=== PATIENT | female | born 1950 | race Caucasian/White ===

== ENCOUNTER 2017-08-23 10:28 | Outpatient (CLI) | payer BC, MEDICARE ==
--- NOTE | ~2017-08-23 | HEMODYNAMI ---
PATIENT:URIAH GUEVARA MEDICAL RECORD: [id number] : 52 LOCATION:D.CAT ADMISSION DATE: 08/23/17 Generatedon:08/23/201715:54 Patient name: URIAH GUEVARA Patient #: [id number] SSN: : 1950 Date of study: 08/23/2017 Page: Of Hemodynamic Procedure Report Patient Data Patient Demographics Procedure consent was obtained First Name: URIAH Gender: Female Last Name: PAOLA : 1950 [facility] Initial: RADHA Age: 66 year(s) Patient #: [id number] Race: Unknown Additional ID: [id number] Contact details Address: [address] [place] [address] State: [place] City: [place] Zip code: [address] Admission Admission Data Admission Date: 08/23/2017 Admission Time: 10:28 Lab Results Lab Result Date: 08/23/2017 Lab Result Time: 11:04 Biochemistry Name Units Result Min Max BUN mg/dl 16 --(---*)-- 7 18 Creatinine mg/dl 0.7 --(*---)-- 0.6 1.3 CBC Name Units Result Min Max Hematocrit % 39 *-(----)-- 42 54 Hemoglobin g/dl 12.7 -*(----)-- 13.5 17.5 Procedure Procedure Types Cath Procedure Diagnostic Procedure LHC LHC w/Coronaries JOE Procedure Description Procedure Date Procedure Date: 08/23/2017 Procedure Start Time: 15:41 Procedure End Time: 15:54 Procedure Staff Name Function Faisal Key MD Performing Physician Jacek Zhang MD Assisting physician Guanakito Byrnes RT Monitor Gary Carlos RN Nurse Memo Fournier RT Monitor Migdalia Aquino RT Scrub Procedure Data Cath Procedure Fluoroscopy Diagnostic fluoroscopy Total fluoroscopy Time: 1.4 time: 1.4 min min Diagnostic fluoroscopy Total fluoroscopy dose: dose: 76.94 mGy 76.94 mGy Contrast Material Contrast Material Type Amount (ml) Isovue 300 36 Entry Location Entry Primary Successful Side Size Upsize Upsize Entry Closure Crow ccessful Closure Location (Fr) 1 (Fr) 2 (Fr) Remarks Device Remarks Radial Right 6 Fr Mechanical artery Short Compression Estimated blood loss: 5 ml Diagnostic catheters Device Type Used For End Catheter Placement Terumo 5Fr Artis 110cm Procedure catheter Procedure Complications No complications Procedure Medications Medication Administration Route Dosage Oxygen NC 6 l/min Heparin Flush Bag added to field 2 bags (1000units/500ml NS) 0.9% NaCl I.V. 100 ml/hr Radial Cocktail added to field 1 syringe (Verapomil 2mg/Nitro 400mcg/Heparin 1500units) Refer to Anesthesia Notes for Sedation Medications Radial Cocktail I.A. 1 syringe (Verapomil 2mg/Nitro 400mcg/Heparin 1500units) Hemodynamics Rest HGB: 12.7 (g/dl) Heart Rate: 58 (bpm) Pressure Samples Time Site Value (mmHg) Purpose Heart Use Rate(bpm) 15:44 LV 160/-10,7 EDP 64 15:45 AO 132/75(99) Pullback 64 15:45 LV 131/15,16 Pullback 64 Gradients Valve Time Site 1 Site 2 Mean SEP/DFP Peak To Heart Use (mmHg) (sec/min) Peak Rate (mmHg) (bpm) Aortic 15:45 LV AO 0 7 0 64 131/15,16 132/75(99) Calculations Valve P-P Mean Valve Index Valve Source Name Gradient Area Flow (cm2) Aortic 0 0 0 0 Snapshots Pre Cath Intra NCS Post Cath Vital Signs Time Heart Resp SPO2 NIBP (mmHg) Rhythm Pain Sedation Rate (ipm) (%) Status Level (bpm) 14:19:35 60 17 99 154/64(114) NSR 0 (11) 10(A) , No pain 14:25:02 59 18 100 153/64(107) NSR 0 (11) 10(A) , No pain 14:29:30 55 17 100 156/62(108) NSR 0 (11) 10(A) , No pain 14:33:55 52 16 100 150/64(94) NSR 0 (11) 10(A) , No pain 14:39:18 56 18 100 149/61(109) NSR 0 (11) 10(A) , No pain 14:44:40 61 19 100 144/57(93) NSR 0 (11) 10(A) , No pain 14:49:04 58 18 100 144/66(102) NSR 0 (11) 10(A) , No pain 14:53:30 58 17 100 159/70(110) NSR 0 (11) 10(A) , No pain 14:58:50 57 18 100 148/66(111) NSR 0 (11) 10(A) , No pain 15:03:12 56 19 100 147/62(106) NSR 0 (11) 10(A) , No pain 15:08:32 57 18 100 162/77(125) NSR 0 (11) 10(A) , No pain 15:13:57 53 17 100 157/63(111) NSR 0 (11) 10(A) , No pain 15:18:30 64 19 100 161/74(88) NSR 0 (11) 9(A) , No pain 15:22:58 58 16 99 136/62(84) NSR 0 (11) 9(A) , No pain 15:33:33 69 18 98 138/56(96) NSR 0 (11) 9(A) , No pain 15:37:53 70 17 96 140/65(94) NSR 0 (11) 9(A) , No pain 15:42:15 57 18 96 138/61(92) NSR 0 (11) 9(A) , No pain 15:47:41 57 17 98 122/71(90) NSR 0 (11) 9(A) , No pain 15:52:01 68 22 99 129/56(86) NSR 0 (11) 9(A) , No pain Medications Time Medication Route Dose Verified Delivered Reason Notes Effectiveness by by 14:19:06 Oxygen NC 6 l/min Jacek Vega Per St. Pito gibbons MD 14:19:17 Heparin Flush added 2 bags Jacek Vega used for Bag to St. Pito Carlos RN procedure (1000units/500ml field IBARRA NS) 14:19:30 0.9% NaCl I.V. 100 Jacek Vega Per ml/hr St. Pito Carlos RN physician IBARRA 14:20:03 Radial Cocktail added 1 Jacek Vega used for (Verapomil to syringe [facility]. Pito Carlos RN procedure 2mg/Nitro field IBARRA 400mcg/Heparin 1500units) 15:20:19 Refer to Jacek Vega for sedation Anesthesia Notes St. Pito Carlos RN for Sedation MD Medications 15:44:34 Radial Cocktail I.A. 1 Jacek Read for (Verapomil syringe St. Pito Zhang vasodilation 2mg/Nitro MD IBARRA 400mcg/Heparin 1500units) Procedure Log Time Note 13:50:39 Gary Carlos RN sent for patient. Start room use. 14:02:39 Time tracking: Regular hours 14:02:44 Plan of Care:Hemodynamics will remain stable., Cardiac rhythm will remain stable., Comfort level will be maintained., Respiratory function will remain adequate., Patient/ family verbilizes understanding of procedure., Procedure tolerated without complication., Recovers from procedure without complications.. 14:05:38 Patient arrived from Pre/Post Procedure Room to [facility] 3. Patient remains on bed/stretcher for procedure. 14:05:40 Warm blankets applied, and roger hugger turned on for patient comfort. 14:05:40 Correct patient and procedure confirmed by team. 14:05:41 Signed procedure consent form obtained from patient. 14:05:42 ECG and BP/O2 sat monitors applied to patient. 14:06:01 [facility] Diamond Die Maker present for JOE. 14:18:17 Case delayed due to Anesthesia. 14:18:17 Vital chart was started 14:18:32 Baseline sample Acquired. 14:18:37 Rhythm: sinus bradycardia 14:18:38 Full Disclosure recording started 14:19:06 Oxygen 6 l/min NC was administered by Gary Carlos RN; Per physician; 14:19:17 Heparin Flush Bag (1000units/500ml NS) 2 bags added to field was administered by Gary Carlos RN; used for procedure; 14:19:30 0.9% NaCl 100 ml/hr I.V. was administered by Gary Carlos RN; Per physician; 14:20:03 Radial Cocktail (Verapomil 2mg/Nitro 400mcg/Heparin 1500units) 1 syringe added to field was administered by Gary Carlos RN; used for procedure; 14:28:29 H&P Date Dictated: 08/13/2017 Within 30 days and on chart., H&P Addendum completed by physician on day of procedure. (MUST COMPLETE FOR ALL OUTPATIENTS). 14:28:29 Pre-procedure instructions explained to patient. 14:28:30 Pre-op teaching completed and patient verbalized understanding. 14:28:32 Family in patients room. 14:28:34 Patient NPO since Midnight. 14:28:35 Is the patient allergic to Iodine/contrast media? No. 14:28:45 Is patient on blood thinner?No 14:28:47 Patient diabetic? No. 14:28:52 Previous problem with sedation/anesthesia? No ? 14:28:53 Snore? Yes 14:28:54 Sleep apnea? No 14:28:55 Deviated septum? No 14:28:55 Opens mouth fully? Yes 14:28:59 Sticks out tongue? Yes 14:29:02 Airway obstruction? No ? 14:29:04 Dentures? No ? 14:29:08 Pre procedure: right dorsailis pedis pulse 1+ Palpable, but thready & weak; easily obliterated 14:29:13 Modified Nile's test Ulnar < 7 seconds 14:29:17 Patient pain scale 0/10 ?. 14:29:32 IV patent on arrival in left forearm with 0.9% NaCl at KVO. 14:29:34 Lab results completed and on chart. 14:29:42 Alarms reviewed by R. N. 14:29:43 Sharps counted by scrub and verified by R.N. 14:30:50 JOE to be done on stretcher, then [facility] after JOE is completed , for Heart cath. 14:51:08 Huang Cerda present and monitoring patient for TIVA. 14:59:00 Case delayed due to Physician working in room 1. 15:16:07 --------ALL STOP TIME OUT------ 15:16:08 Final Timeout: patient, procedure, and site verified with staff and physician. All members of the team are in agreement. 15:16:14 Physical assessment completed. ASA score P 2 - A patient with mild systemic disease as per Faisal Key MD. 15:16:17 Sedation plan: IV Moderate Sedation Versed, Fentanyl 15:17:54 Procedure started. 15:18:05 JOE started. 15:20:19 Refer to Anesthesia Notes for Sedation Medications was administered by Gary Carlos RN; for sedation; 15:25:28 JOE completed. 15:26:41 Pt transferred to procedure table for Heart Cath. 15:31:11 Use device set Radial Dx 15:31:13 Tegaderm 4 x 4 opened to sterile field. 15:31:14 Acist Manifold opened to sterile field. 15:31:14 Acist Hand Control opened to sterile field. 15:31:15 Acist Syringe opened to sterile field. 15:31:16 Medline Cath Pack opened to sterile field. 15:31:16 Bag Decanter opened to sterile field. 15:31:17 Terumo 6Fr Slender Glidesheath opened to sterile field. 15:31:17 [facility] Claude 260cm J .035 wire opened to sterile field. 15:31:59 Vital chart was stopped 15:32:00 Vital chart was started 15:33:05 Right Radial & Right Groin area was prepped with chlora-prep and draped in sterile fashion 15:33:10 Alarms reviewed by R. N. 15:33:10 Sharps counted by scrub and verified by R.N. 15:35:52 Lab Result : Creatinine 0.7 mg/dl 15:35:52 Lab Result : BUN 16 mg/dl 15:35:52 Lab Result : Hemoglobin 12.7 g/dl 15:35:52 Lab Result : Hematocrit 39 % 15:39:47 Zero performed for pressure channel P1 15:41:00 Local anesthetic to right radial artery with Lidocaine 2% by Jacek Zhang MD.INITIAL ACCESS ONLY 15:42:31 A 6 Fr Short sheath was inserted into the Right Radial artery 15:44:18 A Terumo 5Fr Artis 110cm catheter was advanced over the wire and used for Procedure. 15:44:34 Radial Cocktail (Verapomil 2mg/Nitro 400mcg/Heparin 1500units) 1 syringe I.A. was administered by Jacek Zhang MD; for vasodilation; 15:45:05 LV gram done using VILLANUEVA 15:45:06 Injector settings: Ml/sec: 5, Volume: 15, 15:45:40 EF : 55 % 15:45:57 LCA angiography performed. 15:47:48 RCA angiography performed. 15:47:51 Catheter removed. 15:47:57 Terumo TR Band Standard opened to sterile field. 15:48:07 Sheath removed intact; hemostasis achieved with Mechanical Compression to the Right Radial artery. 15:48:09 Procedure ended.(Physican Out) 15:52:10 Fluoroscopy time 01.40 minutes. 15:52:16 Fluoroscopy dose: 76.94 mGy 15:52:16 Flurop Dose total: 76.94 15:52:19 Contrast amount:Isovue 300 36ml. 15:52:20 Sharps counted by scrub and verified by R.N. 15:52:21 TR band inflated with 12cc of air. 15:52:22 Insertion/operative site no bleeding no hematoma. 15:52:31 Post right radial artery:stable, soft, clean and dry 15:52:32 Post Procedure Pulses reassessed and unchanged 15:52:36 Post-procedure physical assessment completed. ASA score P 2 - A patient with mild systemic disease as per Jacek Zhang MD. 15:52:38 Post procedure rhythm: unchanged. 15:52:40 Estimated blood loss: 5 ml 15:52:40 Post procedure instruction explained to patient.Patient verbalizes understanding. 15:52:41 Patient needs reinforcement of post procedure teaching. 15:53:36 Procedure and supply charges have been captured, reviewed, submitted and are correct. 15:53:39 Procedure Complication : No complications 15:53:40 See physician's report for complete and final results. 15:53:46 Report given to Pre/Post Procedure Room. 15:53:49 Patient transfered to Pre/Post Procedure Room with Stretcher. 15:54:02 Procedure ended. 15:54:02 Full Disclosure recording stopped 15:54:07 End room use (Document Last) 15:54:39 Vital chart was stopped Device Usage Item Name Manufacture Quantity Catalog Hospital Part Current Minimal Lot# / Number Charge Number Stock Stock Serial# Code Tegaderm 4 1 [id number] [id number] 5 x 4 Acist Acist 1 79532 397926 429611 166255 5 Manifold [employer] Acist Hand Acist 1 40704 083169 160710 071341 5 Control [employer] Inc Acist Acist 1 11679 451578 672826 455002 20 Syringe [employer] Inc Medline Cardinal 1 [id number] 939272 03891 648493 5 Cath Pack Health Bag Microtek 1 2001S 774952 68061 974508 5 [facility]. Terumo 6Fr Terumo 1 [id number] 595425 348138 177801 [address] [facility] 1 889714 128856 749665 315411 30 260cm J .035 wire Terumo 5Fr Terumo 1 48-8459 513597 379263 998511 5 Artis 110cm catheter Terumo TR Terumo 1 [id number] 257571 456437 683599 40 Band Standard Signature Audit [place] Stage Time Signature Unsigned Intra-Procedure 08/23/2017 Memo Fournier 3:54:36 PM RT(R) Signatures Monitor : Guanakito Byrnes RT Signature : Date : Time : Monitor : Memo Fournier RT Signature : Date : Time : [place] [address] [place] [address]
[2017-08-23] MEDS ORDERED: SYNTHROID112 MCG PO (10:47)
[2017-08-23 10:55] VITALS: BP 152/61; BMI 25.9
[2017-08-23 11:13] LABS: HEMOGLOBIN 12.7 g/dL (12-16); IMMATURE GRANULOCYTES 0.2 % (0-5); LYMPHOCYTES 32.6 % (15-50); MCH 29.2 pg (26.0-34.0); MCHC 32.6 g/dL (31.0-37.0); MCV 89.7 fL (80.0-100.0); MEAN PLATELET VOLUME 10.7 fL (7.4-10.4); MONOCYTES 6.4 % (2-11); NEUTROPHILS 53.8 % (40-80); PLATELET COUNT 238 10x3/uL (130-400); RBC 4.35 10x6/uL (4.00-5.40); WBC 6.3 10x3/uL (4.8-10.8)
[2017-08-23 11:58] LABS: CALC OSMOLALITY 287 mosm/kg (275-300); CALCIUM 9.5 mg/dL (8.5-10.1); CARBON DIOXIDE 26.1 mmol/L (21.0-32.0); CHLORIDE - SERUM 104 mmol/L (98-107); CREATININE - SERUM 0.7 mg/dL (0.6-1.3); GLUCOSE 102 mg/dL (74-106); POTASSIUM - SERUM 3.8 mmol/L (3.5-5.1); SODIUM 144 mmol/L (136-145); UREA NITROGEN 16 mg/dL (7-18); eGFR NON AFRICAN AMERICAN 89 mL/min (90-120)
--- NOTE | 2017-08-23 16:15 | NUR ---
2L NC, NO RESP DISTRESS. RIGHT WRIST TR BAND CDI, NO BLEEDING OR HEMATOMA NOTED. NO C/O PAIN OR NAUSEA. VSS. FAMILY AT BEDSIDE, CALL LIGHT WITHIN REACH.
--- NOTE | 2017-08-23 17:00 | NUR ---
3CC OF AIR REMOVED FROM TR BAND, NO BLEEDING NOTED.
--- NOTE | 2017-08-23 17:15 | NUR ---
2CC OF AIR REMOVED FROM TR BAND, NO BLEEDING NOTED.
--- NOTE | 2017-08-23 17:30 | NUR ---
3CC OF AIR REMOVED FROM TR BAND, NO BLEEDING NOTED.
--- NOTE | 2017-08-23 17:45 | NUR ---
LEFT PIV D/C'D WTIH CATHETER INTACT, BAND AID TO SITE. UP TO BEDSIDE TO GET DRESSED.
--- NOTE | 2017-08-23 17:52 | NUR ---
DISCHARGE INSTRUCTIONS GIVEN, VERBALIZED UNDERSTANDING. REMAINING AIR REMOVED FROM TR BAND, DRESSING TO SITE. TO RESTROOM TO VOID.
--- NOTE | 2017-08-23 18:00 | NUR ---
TAKEN OUT VIA WHEELCHAIR BY CATH CHUTE BUILDER. LEFT FACILITY WITH FAMILY MEMBER AND ALL PERSONAL BELONGINGS.
--- NOTE | 2017-08-24 07:50 | EC ---
PATIENT:URIAH GUEVARA DATE OF SERVICE: 08/23/17 SEX: F MEDICAL RECORD: [id number] DATE OF : 52 LOCATION:D.CAT AGE OF PATIENT: 66 ADMISSION DATE: 08/23/17 REFERRING PHYSICIAN: INTERPRETING PHYSICIAN: SONIA HATHAWAY MD ECHOCARDIOGRAM REPORT ECHO CHARGES CLINICAL DIAGNOSIS: ECHOCARDIOGRAPHIC MEASUREMENTS (adult normal given) AC root (d.<3.7cm) cm LV Septum d (<1.2 cm> cm Valve Excursion cm LV Septum (systole) cm Left Atria (s.<4.0cm> cm LVPW d(<1.2cm) cm RV (d.<2.3cm) cm LVPW (sytole) cm LV diastole(<5.6CM) cm MV E-F(>70mm/sec) cm LV systole cm LVOT Diameter cm MV exc.(>10mm) cm Est.ejection fraction (50-75%) % Pericardial Effusion DOPPLER: LVIT cm/sec A cm/sec E cm/sec LA cm/sec RVSP mmHg LVOT cm/sec AOP1/2T m/s Asc. Ao cm/sec RVOT cm/sec RA cm/sec PA cm/sec AV Gradient Peak mmHg AV Mean mmHg AV Area cm MV Gradient Peak mmHg MV Mean mmHg MV Area cm COMMENTS: Materials Supervisor: Avril CARROE Machine Splitter: Abby Zhang TAPE# PACS DATE OF SERVICE: 08/23/2017 Transesophageal Note DESCRIPTION OF PROCEDURE: After general sedation via TIVA via anesthesia, the transesophageal Omniplane probe was placed in the distal esophagus and proximal stomach without difficulty. FINDINGS: As follows: No LVH. LV internal dimension is normal. Wall motion is normal. EF is greater than 55%. Aortic valve is tricuspid. There is no ECHOCARDIOGRAM REPORT [id number] URIAH GUEVARA stenosis by Doppler interrogation. No significant AI. Left atrium does appear mildly dilated by a 2D. Mitral valve has a marked redundancy of the anterior leaflet, severe eccentric jet of MR is noted as well. Right-sided chambers appear grossly normal, trivial TR by color flow imaging. At the end of the procedure, the transesophageal Omniplane probe was turned posteriorly and this shows minimal atherosclerotic debris in the descending aorta. TRANSINT:[id number] Voice Confirmation ID: [id number] DOCUMENT ID: [id number] SONIA HATHAWAY MD at 0750 CC: [id number] DICTATION DATE: 08/23/17 155 HEATING AND COOLING SYSTEMS ENGINEER: 08/23/17 190 DEP CLI 08/23/17 [facility] [address] [place] [address]
--- NOTE | 2017-08-24 07:50 | OP ---
PATIENT NAME: URIAH GUEVARA MEDICAL RECORD: [id number] :52 LOCATION:D.CAT ADMISSION DATE: SURGEON: SONIA HATHAWAY MD DATE OF OPERATION: 08/23/2017 PROCEDURE: Left heart catheterization, selective coronary angiography, right radial approach. CATHETERS: A 5-Argentine sheath, 5/4 left and right Kj, 5/4 pig. The procedure was well tolerated. The patient returned to the arce, sheath removed. TR band was placed. FINDINGS: Left ventriculography in 30-degree VILLANUEVA view: Normal wall motion, normal systolic function. CORONARY ANATOMY. LEFT MAIN: Left main is free of disease. LAD: Free of disease in the diagonal system. CIRCUMFLEX: Left dominant system free of disease. RIGHT CORONARY ARTERY: Rudimentary free of disease. IMPRESSION: Normal systolic function, normal coronary anatomy, severe MR as per JOE. TRANSINT:[id number] Voice Confirmation ID: [id number] DOCUMENT ID: [id number] SONIA HATHAWAY MD at 0750 CC: [id number] DICTATION DATE: 08/23/17 1556 INVESTIGATIVE ANALYST: 08/23/17 1839 DEP CLI 08/23/17 [facility] [address] [place] [address]
== END 2017-08-23 18:00 | disposition home or self-care (01) ==
LOC: D.CATH 10:28
PROVIDERS: Internal Medicine Cardiovascular Disease
DX: I34.0 Nonrheumatic mitral (valve) insufficiency (principal); Z01.812 Encounter for preprocedural laboratory examination

== ENCOUNTER → 2017-09-08 12:18 | Outpatient (CLI) | payer BC, MEDICARE ==
[2017-08-23 10:55] VITALS: BMI 25.9
[~2017-09-08 12:18] MED LIST: CORDARONE200 MG PO; HEMOCYTE PLUS C1 CAP PO; HYDROCODONE-APA1 TAB PO; K-DUR20 MEQ PO; LASIX20 MG PO; NORVASC10 MG PO; SYNTHROID112 MCG PO
[2017-09-09 11:19] LABS: HEPATITIS C ANTIBODY <0.1 (0.0-0.9)
== END | disposition home or self-care (01) ==
LOC: D.US 12:00
PROVIDERS: Internal Medicine Cardiovascular Disease
DX: Z01.812 Encounter for preprocedural laboratory examination (principal); I65.23 Occlusion and stenosis of bilateral carotid arteries

== ENCOUNTER 2017-09-20 06:27 | Inpatient (IN) | payer BC, MEDICARE ==
--- NOTE | 2017-09-12 13:37 | HP ---
PATIENT: URIAH GUEVARA ANN MEDICAL RECORD: [id number] ACCOUNT: [id number] LOCATION:[facility] : 52 ADMISSION DATE: 09/20/17 HISTORY AND PHYSICAL EXAMINATION NameSURIAH ODONNELL (66yo, F) ID# [id number]. Date/Time09/08/2017 11:19XKCXU29/16/1951Service Dept.NP_[facility] ClinicProviderEDVAIBHAV WALLACE MDInsuranceMed Primary: [place] (POS) Insurance # : [id number] Referring Provider Name : DAMIÁN ALEJANDRO JR Employer Name : UNKNOWN Med Secondary: [place] (MEDICARE) Insurance # : [id number] Referring Provider Name : DAMIÁN ALEJANDRO JR Employer Name : UNKNOWN Prescription: MDIM - Member is eligible. Chief Complaint mitral valve replacement EVAL FOR MVR Patient's Care Team Referring Provider (): DAMIÁN ALEJANDRO JR: [address] [place] [address], , Patient's Pharmacies [facility] [address] [facility] [address], , Vitals BP:164/72 sitting L arm 09/08/2017 11:06 am 160/68 sitting R arm 09/08/2017 11:08 amBP Cuff Size:adult 09/08/2017 11:06 am adult 09/08/2017 11:08 amHR:80,MURMUR, MISSED BEAT 09/08/2017 11:08 amHt:5 ft 7 in 09/08/2017 11:08 amWt:165 lbs 09/08/2017 11:08 amNotes:HAS BEEN FOLLOWING HER MURMUR FOR FOUR YEARS VIA ECHO, WAS REFERRED TO DR GUZMÁN THIS PAST ECHO. DENIES SOB, FATIGUE. SOMETIMES FEELS "NERVOUS FEELING IN HER CHEST", PLACES HAND JUST BELOW NECK AT TOP OF STERNUM.09/08/2017 11:09 amBMI:25.8 09/08/2017 11:08 amAllergies Reviewed Allergies ASPIRIN: Hives - MOUTH SWELLINGMedications Reviewed Medications levothyroxine 112 mcg axnvre63/25/17 filledMEDIMPACTProblems Reviewed Problems Mitral valve regurgitation - Onset: 08/30/2017 Family History Discussed Family History Unspecified Relation- Heart disease - parent/sibling/child/grandparent - Cerebrovascular accident - relative unspecifiedSocial History Discussed Social History Cardiology Family history of heart disease?: Y Smoking Status: Never smoker High Cholesterol: N High blood pressure: N Diabetes: N Alcohol intake: None HISTORY AND PHYSICAL [id number] URIAH GUEVARA Diet: Regular 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 HPI Valvular Heart Disease Reported by patient. Context: MITRAL REGURG Associated Symptoms: palpitations mitral regurgitation ROS Patient reports shortness of breath when walking and known heart murmur (for years) but reports no chest pain, no arm pain on exertion, no shortness of breath when lying down, and no palpitations. She reports shortness of breath but reports no cough, no wheezing, and no coughing up blood. She reports no fever, no night sweats, no significant weight gain, no signifi cant weight loss, and no exercise intolerance. She reports no dry eyes, no irritation, and no vision change. She reports no difficulty hearing and no ear pain. She reports no frequent nosebleeds and no nose/sinus problems. She reports no sore throat, no b l eeding gums, no snoring, no dry mouth, no mouth ulcers, no oral abnormalities, and no teeth problems. She reports no jugular vein distension and no swollen glands. She reports no abdominal pain, no vomiting, normal appetite, no diarrhea, not vomiting bloo d , no nausea, and no constipation. She reports no incontinence, no difficulty urinating, no hematuria, and no increased frequency. She reports no muscle aches, no muscle weakness, no arthralgias/joint pain, no back pain, and no swelling in the extremities. She reports no abnormal mole, no jaundice, and no rashes. She reports no loss of consciousness, no weakness, no numbness, no seizures, no dizziness, and no headaches. She reports no depression, no sleep disturbances, feeling safe in relationship, and no a lcohol abuse. She reports no fatigue. She reports no swollen glands and no bruising. She reports no runny nose, no sinus pressure, no itching, no hives, and no frequent sneezing. ROS as noted in the HPI Physical Exam Patient is a 66-year-old female. Constitutional: General Appearance well nourished and developed and healthy-appearing. Level of Distress NAD. Ambulation ambulating normally. Cardiovascular: Apical Impulse not displaced or no thrill. Heart Auscultation normal s1 and s2, no rubs or gallops, and RRR and murmur (4/6 systolic murmur left sternal border and apex). Arterial Pulses no abdominal aorta bruits, femoral bruits, or popliteal bruits and 2+ bilateral, carotid 2+ bilateral, femoral 2+ bilateral, HISTORY AND PHYSICAL [id number] PAOLAURIAHCHARLENE popliteal 2+ bilateral, and dorsalis pedis 2+ bilateral. Edema no edema or varicosities. Lungs: Repiratory Effort no dyspnea. Percussion no hyperresonance or dullness or flatness. Auscultation no wheezing, rhonchi, or rales / crackles and breathing sounds normal, good air movement, and CTA except as noted. Abdomen: Bowl Sounds normal. Inspection and Palpation no tenderness, guarding, masses, or rebound tenderness and soft and non-distended. Liver non-tender and no hepatomegaly. Spleen non-tender and no splenomegaly. Hernia none palpable. Musculoskeletal System: Gait And Stance normal gait and stance. Digits and Nails normal nails and no cyanosis. Neurologic: Cranial Nerves grossly intact. Reflexes DTRs 2+ bilaterally throughout. Sensation grossly intact. Lymph Nodes: Lymph Nodes no cervical LAD, supraclavicular LAD, axillary LAD, or inguinal LAD. Eyes: Lids and Conjunctivae no discharge or pallor and non-injected. Pupils PERRLA. Cornea grossly intact. EOM EOMI. Lens clear. Sclera non-icteric. Neck: Neck no masses, enlarged lymph nodes, or carotid bruits and supple and trachea midline. Thyroid no enlargement or nodules and non-tender. Skin: Inspection and Palpation no rash, lesions, ulcers, jaundice, or abnormal nevi. Assessment / Plan mitral regurgitation secondary to anterior leaflet prolapse 1. Mitral valve regurgitation I34.0: Nonrheumatic mitral (valve) insufficiency HEART VALVE DISEASE: CARE INSTRUCTIONS MITRAL VALVE REGURGITATION: CARE INSTRUCTIONS Discussion Notes I have discussed the patient's disease process with her in detail as well as the alternative modes of treatment. We discussed mitral valve repair replacement including the expected benefits and risk which include bleeding, infection, stroke, and , an d the imponderables. She understands all of the above and wishes to proceed with planned surgery. Scheduled for mitral valve repair or replacement CHUCK WALLACE MD at 1337 CC: [id number] DICTATION DATE: 09/08/17 1100 WET PROCESS HEAD MILLER: DM 09/10/17 1524 [address] [place] [address]
[2017-09-17 10:41] LABS: APPEARANCE CLEAR (CLEAR); BASOPHILS 0.6 % (0-2); COLOR YELLOW (YELLOW); EOSINOPHILS 5.3 % (0-7); HEMOGLOBIN 12.1 g/dL (12-16); IMMATURE GRANULOCYTES 0.1 % (0-5); LYMPHOCYTES 26.8 % (15-50); MCH 29.2 pg (26.0-34.0); MCHC 31.8 g/dL (31.0-37.0); MCV 91.6 fL (80.0-100.0); MEAN PLATELET VOLUME 10.4 fL (7.4-10.4); NEUTROPHILS 61.2 % (40-80); NITRITE NEGATIVE (NEGATIVE); PLATELET COUNT 257 10x3/uL (130-400); PROTEIN NEGATIVE (NEGATIVE); RBC 4.15 10x6/uL (4.00-5.40); RDW 13.9 % (11.5-14.5)
[2017-09-17 10:42] LABS: BILIRUBIN NEGATIVE (NEGATIVE); GLUCOSE NEGATIVE (NEGATIVE); KETONE NEGATIVE (NEGATIVE); UROBILINOGEN NORMAL (NORMAL)
[2017-09-17 10:48] LABS: INR 0.88 (0.85-1.17); PROTIME 11.8 SECONDS (11.6-15.0)
[2017-09-17 10:49] LABS: APTT 28.9 SECONDS (22.8-39.4)
[2017-09-17 10:54] LABS: HEMOGLOBIN A1C 5.5 % (4.8-6.0)
[2017-09-17 11:05] LABS: ALBUMIN 4.2 g/dL (3.4-5.0); ALKALINE PHOSPHATASE 55 U/L (46-116); ALT (SGPT) 29 U/L (10-68); BILIRUBIN - TOTAL 0.35 mg/dL (0.2-1.3); CALC OSMOLALITY 287 mosm/kg (275-300); CALCIUM 9.6 mg/dL (8.5-10.1); CARBON DIOXIDE 29.3 mmol/L (21.0-32.0); CHLORIDE - SERUM 105 mmol/L (98-107); CHOLESTEROL, TOTAL 225 mg/dL (0-200); CREATININE - SERUM 0.7 mg/dL (0.6-1.3); GLUCOSE 100 mg/dL (74-106); PHOSPHOROUS 3.8 mg/dL (2.5-4.9); PROTEIN - SERUM 8.1 g/dL (6.4-8.2); SODIUM 143 mmol/L (136-145); T4 THYROXIN - FREE 1.45 ng/dL (0.76-1.46); THYROID STIMULATING HORMONE 2.56 uIU/mL (0.36-3.74); UREA NITROGEN 21 mg/dL (7-18); URIC ACID 2.7 mg/dL (2.6-7.2); eGFR NON AFRICAN AMERICAN 89 mL/min (90-120)
[2017-09-17 12:43] LABS: COLD SCREEN @ 4 DEGREES 2+ (NEGATIVE); COLD SCREEN ROOM TEMP NEGATIVE (NEGATIVE)
[2017-09-20] VITALS (42 sets, daily range): BP systolic 91–157; BP diastolic 40–72; BMI 25.9; BMI 27.4
[~2017-09-20] VITALS: Ht 170.2 cm; Wt 76.0 kg
[~2017-09-20 06:27] MED LIST changes: -CORDARONE200 MG PO; -HEMOCYTE PLUS C1 CAP PO; -HYDROCODONE-APA1 TAB PO; -K-DUR20 MEQ PO; -LASIX20 MG PO; -NORVASC10 MG PO
[2017-09-20 09:04] LABS: PLT FUNCT.(P2Y12) PLAVIX 370 PRU (194-418)
[2017-09-20 13:16] LABS: HEMATOCRIT 29.2 % (36.0-48.0); HEMOGLOBIN 9.9 g/dL (12-16); MCH 29.6 pg (26.0-34.0); MCHC 33.9 g/dL (31.0-37.0); MCV 87.4 fL (80.0-100.0); MEAN PLATELET VOLUME 10.4 fL (7.4-10.4); RBC 3.34 10x6/uL (4.00-5.40); WBC 11.8 10x3/uL (4.8-10.8)
[2017-09-20 13:27] LABS: CALC OSMOLALITY 295 mosm/kg (275-300); CALCIUM 7.4 mg/dL (8.5-10.1); CARBON DIOXIDE 24.4 mmol/L (21.0-32.0); CHLORIDE - SERUM 110 mmol/L (98-107); CREATININE - SERUM 0.5 mg/dL (0.6-1.3); POTASSIUM - SERUM 3.7 mmol/L (3.5-5.1); SODIUM 146 mmol/L (136-145); UREA NITROGEN 12 mg/dL (7-18); eGFR NON AFRICAN AMERICAN > 90 mL/min (90-120)
[2017-09-20 13:28] LABS: GLUCOSE 194 mg/dL (74-106)
[2017-09-20 13:36] LABS: APTT 40.4 SECONDS (22.8-39.4); INR 1.41 (0.85-1.17); PROTIME 17.1 SECONDS (11.6-15.0)
--- NOTE | 2017-09-20 14:30 | NUR ---
1413 Patient arrived to room CV5. Pt ventilated. ETT 7.5cm at 22cm lip line. Pt has right jugular swan, measure at 50cm. Syringe is locked. Has right subclavian central line. With Levphed, Primacor, Dopamine, Plasmalyte and Amiodarone infusing. Insulin drip on pause. Chest tube x2 (anterior and posterior) at left chest. Drainage is bloody. Midsternal dressing (clean and dry). Has balloon and entry is at right groin Dressing is clean and dry. Criticore oneil in use. Urine is dark yellow/pink tinged, but clear. David hose to left leg. Bilateral SCD's in use. Invos monitor in use L67, R72.
--- NOTE | 2017-09-20 17:04 | NUR ---
DR. Aguilar came by to see patient. To replace potassium with 40meq over 3hours. Wants patient to remain on Dopamine drip and Primacore drip until he says to turn off. Wean Levophed to off. If patient becomes hypertensive after Levophed has been weaned, do not start Nitro without calling Dr. Aguilar first. He said he may want to increase dose of Primacore before starting Nitro.
--- NOTE | 2017-09-20 18:19 | NUR ---
Pt threw-up small amount of pink-tinged emesis. suctioned. oral care provided.
--- NOTE | 2017-09-20 18:51 | NUR ---
ATTEMPTED TO CALL DR WALLACE WITH UPDATE AND ABG RESULTS. PHONE LINE BUSY. WILL TRY AGAIN
--- NOTE | 2017-09-20 18:58 | NUR ---
CALLED DR WALLACE. UPDATE PROVIDED. NO NEW ORDERS.
--- NOTE | 2017-09-20 19:30 | NUR ---
REPORT REC'D AND CARE ASSUMED, PT REC'D ON VENT VIA 7.5 ETT TAPED AT 22CM LIPLINE SEE FLOWSHEET FOR VENT SETTINGS, PT ON CPAP AT THIS TIME, RESP 19 SPO2 99%, OPENS EYES TO NAME, FOLLOWS COMMANDS, PROCEDURE EXPLAINED FOR EXTUBATION AND PT NODS HEAD IN UNDERSTANDING, OGT TAPED SECURELY TO ETT, PLACEMENT VERIFIED VIA SM AIR BOLUS AUSCULTATED OVER EPIGASTRIM, BLOODY DRAINAGE NOTED FROM OGT, RIJ EVER GREGG DRSG CDI SITTING AT APPROX 50CM, PLASMALYTE @ 100CC/HR, DOPAMINE @ 5MCG/KG/MIN, INSULIN @ 2UNITS/HR, PRIMACOR @ 0.3MCG/KG/MIN, LEVOPHED @ 0.031MCG/KG/MIN, AND CORDARONE @ 1MG/MIN OR 10CC, ZINACEF @ 11.4CC/HR, RDLSCL DRSG CDI WITH BURETROL @ 10CC/HR AND NITROGLYCERIN ON HOLD, MIDSTERNAL DRSG CDI, RIGHT RADIAL KERI WITH FLEXION BOARD IN USE LEVELED AND ZEROED WITH RETURN OF APPROPRIATE WAVEFORM, SUBSTERNAL DRSG CDI WITH MEDIASTINAL CT'S X 2, 20CM H2O SUCTION, SANGUINOUS DRAINAGE NOTED, NO AIR LEAK, CRTICORE CLEMENTE PATENT DRAINING CLEAR YELLOW URINE, RIGHT GROIN IABP 1:1 DRSG CDI NO BLEEDING OR HEMATOMA, ALL PULSES PALPABLE, JASMEET AND SCD TO LEFT LEG, BILAT SOFT WRIST RESTRAINTS INTACT, SR UP X 2, 1:1 NURSE AT BS.
--- NOTE | 2017-09-20 20:00 | NUR ---
PT EXTUBATED TO 4LITERS NC, ORAL CARE PROVIDED AND FACE WASHED, BILAT SOFT WRIST RESTRAINTS REMOVED, INSTRUCTED PT NOT TO PULL AT LINES OR OTHER EQUIPMENT, PT NODS HEAD IN UNDERSTANDING.
--- NOTE | 2017-09-20 20:30 | NUR ---
PT PULLED 750 X 2 AND 1000 X 8 ON IS, WEAK COUGH NOTED.
--- NOTE | 2017-09-20 20:45 | NUR ---
PT ATTEMPTING TO COUGH, ENCOURAGED PT TO USE HEART PILLOW TO SPLINT WITH, PRODUCTIVE COUGH OF THICK LIGHT YELLOW SPUTUM, TELMA PROVIDED FOR PT TO CLEAR SECRETIONS, NO VISITORS IN AT THIS TIME.
--- NOTE | 2017-09-20 21:00 | NUR ---
ROUTINE MEDS GIVEN, PO MEDS HELD, PT WITH INTERMITTENT NAUSEA, WILL RESUME TOMORROW.
--- NOTE | 2017-09-20 22:30 | NUR ---
PT REPOSITIONED FOR COMFORT, PT PULLING 1500 ON IS, TOLERATING ICE CHIPS AT THIS TIME, NO FURTHER COMPLAINTS OF NAUSEA.
--- NOTE | 2017-09-20 23:00 | NUR ---
REASSESSMENT COMPLETED, PT RATING PAIN "0-1" AFTER BOTTOM SAW OPERATOR INITIATED, ICE CHIPS PROVIDED, PT DENIES FURTHER NEEDS.
[2017-09-21] VITALS (102 sets, daily range): BP systolic 91–139; BP diastolic 36–80; Ht 170.2 cm; Wt 76.0 kg
--- NOTE | 2017-09-21 01:00 | NUR ---
NO CHANGES IN STATUS AT THIS TIME, ATTEMPTING TO WEAN LEVOPHED SLOWLY SBP TRENDING 90'S, WILL MONITOR CLOSELY FOR CHANGES.
--- NOTE | 2017-09-21 03:50 | NUR ---
RADIOLOGY AT BS FOR AM CXR, PT TOLERATED WELL.
--- NOTE | 2017-09-21 04:20 | NUR ---
CHLORIHEXIDINE BATH PROVIDED AND CLEMENTE CARE DONE, LINEN CHANGE PROVIDED, PT TOLERATED WELL, REPOSITIONED UP AND ONTO BACK, PT REMINDED TO KEEP RIGHT LEG STRAIGHT, PT VERBALIZES UNDERSTANDING, VSS.
--- NOTE | 2017-09-21 05:30 | NUR ---
SPOKE WITH PT'S BROTHER BY PHONE, UPDATE PROVIDED AND QUESTIONS ANSWERED, INFORMED PT OF BROTHER'S CALL, PT DENIES NEEDS AT THIS TIME.
--- NOTE | 2017-09-21 06:05 | NUR ---
AM SYNTHROID GIVEN, PT HAD NO DIFFICULTY SWALLOWING, DENIES PAIN OR NEEDS, WILL CONT TO MONITOR.
[2017-09-21 06:31] LABS: HEMATOCRIT 29.8 % (36.0-48.0); HEMOGLOBIN 10.1 g/dL (12-16); MCHC 33.9 g/dL (31.0-37.0); MCV 88.4 fL (80.0-100.0); MEAN PLATELET VOLUME 10.7 fL (7.4-10.4); RBC 3.37 10x6/uL (4.00-5.40); RDW 15.1 % (11.5-14.5); WBC 9.7 10x3/uL (4.8-10.8)
[2017-09-21 06:33] LABS: PLATELET COUNT 86 10x3/uL (130-400)
--- NOTE | 2017-09-21 07:00 | NUR ---
RECEIVED PT FOR CARE. PT IN SUPINE POSITION. RESTING IN BED WITH EYES OPEN. CALL LIGHT WITHIN REACH. ASSESSMENT COMPLETED. WELDER OPERATOR BUTTON WITHIN REACH.
[2017-09-21 07:01] LABS: ALBUMIN 3.8 g/dL (3.4-5.0); ALKALINE PHOSPHATASE 21 U/L (46-116); ALT (SGPT) 22 U/L (10-68); BILIRUBIN - TOTAL 1.06 mg/dL (0.2-1.3); CALC OSMOLALITY 285 mosm/kg (275-300); CALCIUM 8.1 mg/dL (8.5-10.1); CARBON DIOXIDE 27.9 mmol/L (21.0-32.0); CHLORIDE - SERUM 107 mmol/L (98-107); CREATININE - SERUM 0.6 mg/dL (0.6-1.3); POTASSIUM - SERUM 3.8 mmol/L (3.5-5.1); PROTEIN - SERUM 5.8 g/dL (6.4-8.2); SODIUM 143 mmol/L (136-145); UREA NITROGEN 13 mg/dL (7-18); eGFR NON AFRICAN AMERICAN > 90 mL/min (90-120)
[2017-09-21 07:08] LABS: GLUCOSE 117 mg/dL (74-106)
--- NOTE | 2017-09-21 07:18 | NUR ---
ORAL CARE DONE WITH PERIDEX
[2017-09-21 07:45] LABS: PLATELET ESTIMATE DECREASED
--- NOTE | 2017-09-21 07:45 | NUR ---
DR. AWLLACE AT BEDSIDE. TPM CHANGED TO DDD 90 VMA/AMA 10. A/V PACED. PT TOLERATED WELL.
--- NOTE | 2017-09-21 09:25 | NUR ---
FAMILY AT BEDSIDE. UPDATED ON PT'S STATUS.
--- NOTE | 2017-09-21 11:18 | NUR ---
LEVOPHED GTT WEANED OFF PER MD ORDERS. CARRIER FLUIDS WEANED DOWN TO 30CC/HR. PT TOLERATED WELL.
--- NOTE | 2017-09-21 13:32 | NUR ---
PT RESTING COMFORTABLY. ABLE TO PULL 1250 ON INCENTIVE SPIROMETER. STRONG COUGH NOTED.
--- NOTE | 2017-09-21 16:00 | NUR ---
DRESSINGS CHANGED TO UPPER ABDOMEN CT X2 AND PACER WIRES. NO S/S OF INFECTION NOTED. NO DRAINAGE NOTED. ALL WIRES INTACT AND SECURE. CLEMENTE CATH CARE WITH SURE STEP CLEMENTE WIPES. PT TOLERATED WELL.
--- NOTE | 2017-09-21 18:56 | NUR ---
ORAL CARE WITH PERIDEX PROVIDED
--- NOTE | 2017-09-21 19:15 | NUR ---
REC'D PT RESTING IN BED EYES CLOSED, O2 @ 2LITERS, PT AWAKENS TO VERBAL STIMULI, ORIENTED X 3, PT REPORTS PAIN "3" ON 0-10 PAIN SCALE, SOLAR SALES REPRESENTATIVE BUTTON IN HAND, RIMarybel CURTIS CRISTINO DRSG CDI SETTING AT APPROX 50CM, MANNIFOLD TO PROXIMAL INFUSION WITH PLASMALYTE @ 30CC/HR, DOPAMINE @ 5MCG/KG/MIN, PRIMACOR @ 0.3MCG/KG/MIN AND CORDARONE @ 0.5MG/MIN, INSULIN @ 1UNIT/HR AND ZINACEF @ 11.4CC/HR TO DISTAL LUMEN OF SWAN, RDLSCL DRSG CDI WITH BURETROL @ 10CC/HR AND MORPHINE SOLAR SALES REPRESENTATIVE 1MG Q10MIN WITH 24MG Q4HR LOCKOUT, MIDSTERNAL DRSG CDI, SUBSTERNAL DRSG CDI WITH MEDIASTINAL CT'S X 2 TO 20 CM H2O SUCTION, NO AIR LEAK, EXTERNAL P/M WIRES TAPED SECURELY TO UPPER ABD, EXTERNAL P/M DDD 90 AMA 10 VMA 10, CM-AV PACED, RIGHT RADIAL KERI WITH FLEXION BOARD IN USE, CRITICORE CLEMENTE PATENT DRAINING CLEAR YELLOW URINE, RIGHT GROIN IABP 1:1 WITH ECG TRIGGER, DRSG CDI NO BLEEDING OR HEMATOMA NOTED, BILATERAL SCDS, JASMEET TO LEFT LEG, HOB 15 DEGREES, SR UP X 2, 1:1 NURSE AT BS.
--- NOTE | 2017-09-21 19:20 | NUR ---
PT REPOSITIONED ONTO RIGHT SIDE SUPPORTED WITH PILLOW, TOLERATED WELL, DENIES FURTHER NEEDS, BP STABLE.
--- NOTE | 2017-09-21 21:10 | NUR ---
EVENING MEDS GIVEN, HOB ELEVATED TO 20 DEGREES FOR PT TO SWALLOW MEDS, NO DIFFICUTLY NOTED, PT REPOSITIONED TO BACK FOR COMFORT, DENIES PAIN, TRIAL JUDGE BUTTON IN REACH.
--- NOTE | 2017-09-21 23:00 | NUR ---
REASSESSMENT COMPLETED, RT AT BS FOR BREATHING TX, O2 SAT 95%, KERI POSITIONAL AT TIMES, SIPS OF WATER PROVIDED, WILL CONT TO MONITOR CLOSELY FOR CHANGES.
[2017-09-22] VITALS (97 sets, daily range): BP systolic 90–140; BP diastolic 37–58
--- NOTE | 2017-09-22 01:35 | NUR ---
PT AWAKE COMPLAINS OF BEING UNCOMFORTABLE, PT REPOSITIONED TO RIGHT SIDE PER REQUEST, SIPS OF WATER GIVEN, PT DENIES FURTHER NEEDS.
--- NOTE | 2017-09-22 03:40 | NUR ---
RADIOLOGY AT BS FOR AM CXR PT REPOSITIONED ONTO BACK.
--- NOTE | 2017-09-22 04:30 | NUR ---
PT REPOSITIONED UP IN BED AND ONTO LEFT SIDE SUPPORTED WITH PILLOW, WATER PROVIDED, MORPHINE MANAGER OF ORGANIZATIONAL DEVELOPMENT IN REACH, PT DENIES PAIN AT THIS TIME.
--- NOTE | 2017-09-22 04:57 | NUR ---
PT PULLING 1000 TO 1250 ON IS, STRONG PRODUCTIVE COUGH, LIGHT YELLOW SPUTUM, PT CLEARING SECRETIONS WITH YANKUER, RT AT BS FOR AM EKG
--- NOTE | 2017-09-22 05:50 | NUR ---
AM LAB DRAWN FROM CVL AND SENT TO LAB, PT REPOSITIONED ONTO RIGHT SIDE PER REQUEST.
[2017-09-22 06:25] LABS: HEMATOCRIT 25.8 % (36.0-48.0); HEMOGLOBIN 8.5 g/dL (12-16); MCH 29.9 pg (26.0-34.0); MCHC 32.9 g/dL (31.0-37.0); MEAN PLATELET VOLUME 10.6 fL (7.4-10.4); RBC 2.84 10x6/uL (4.00-5.40); RDW 15.3 % (11.5-14.5); WBC 9.5 10x3/uL (4.8-10.8)
[2017-09-22 06:47] LABS: MCV 90.8 fL (80.0-100.0)
[2017-09-22 07:00] LABS: ALBUMIN 3.8 g/dL (3.4-5.0); ALKALINE PHOSPHATASE 26 U/L (46-116); ALT (SGPT) 21 U/L (10-68); BILIRUBIN - TOTAL 0.79 mg/dL (0.2-1.3); CALC OSMOLALITY 279 mosm/kg (275-300); CALCIUM 8.6 mg/dL (8.5-10.1); CARBON DIOXIDE 26.3 mmol/L (21.0-32.0); CHLORIDE - SERUM 105 mmol/L (98-107); CREATININE - SERUM 0.6 mg/dL (0.6-1.3); GLUCOSE 108 mg/dL (74-106); POTASSIUM - SERUM 3.9 mmol/L (3.5-5.1); PROTEIN - SERUM 5.9 g/dL (6.4-8.2); SODIUM 140 mmol/L (136-145); UREA NITROGEN 13 mg/dL (7-18); eGFR NON AFRICAN AMERICAN > 90 mL/min (90-120)
--- NOTE | 2017-09-22 07:30 | NUR ---
Report received. Assumed care of patient. Pt awake, alert, conversant. On 2L nc. Has RIJ swan at 53cm, dressing intact and dated 09/20. RSubclavain double lumen central line with the following fluids: Insulin GTT at 1unit/hr, Plasmalyte 30ml/hr, Dopamine at 5mcg/kg/min, Amimodarone at 0.5mg/min, Primacor at 0.3mcg/kg/min, Buretrol with Plasmalyte at 10ml/hr, Zinacef (bag #2) 11.4ml/hr, Morphine AGRICULTURAL ECONOMICS TEACHER 1mg Q10min, 24mg Q4H lockout. Right radial ART line, reported as positional in nature for readings. Dressing is intact and armboard in use. Balloon pump with ECG trigger and setting of 1:1 in use with entry at right groin. Dressing is clean, dry and intact with date of 09/20/17. All pressure bags checked for fluids and proper inflation. PA,CVP and ART lines zeroed at this time. Dressing to midsternum is clean, dry and intact with date of 09/20. Substernal dressing over temp pacer and chest tubes intact with iodine bleed-through. Dressing dated 09/21. Temp pacer set at DDD 90,10,10. Paced on the monitor. Chest tube canister marked with P and A lines, no airleak noted. Is at 20cm suction. Pt has susi hose to left leg with SCD's bilaterally. Pulses strong. Criticore oneil in use. Clear yellow urine noted. Temp elevated at 37.8 degrees. Pt has productive cough, lungs diminished in bases, otherwise clear.
--- NOTE | 2017-09-22 07:45 | NUR ---
DR WALLACE BY TO SEE PATIENT. ADJUSTED BALLOON PUMP SETTING FROM 1:1 TO 1:2. PLANS TO REMOVE LINES THIS AFTERNOON. TEMP PACER SETTING CHANGED TO VV1 60,0,10.
--- NOTE | 2017-09-22 08:07 | NUR ---
FAMILY AT BEDSIDE AT THIS TIME. ALL QUESTIONS ANSWERED.
--- NOTE | 2017-09-22 08:31 | NUR ---
HEPARIN IN PRESSURE BAGS CHANGED OUT AND REPLACED WITH NS
--- NOTE | 2017-09-22 09:35 | NUR ---
MORNING MEDICATIONS PROVIDED. FAMILY REMAINS AT BEDSIDE. CASE MANAGEMENT HAS BEEN IN TO SPEAK WITH PATIENT.
--- NOTE | 2017-09-22 09:43 | NUR ---
FAMILY HAS LEFT. PT REQUESTED BEING TURNED TO RIGHT SIDE. REPOSITIONED FOR COMFORT.
--- NOTE | 2017-09-22 10:33 | NUR ---
* Is the patient Alert and Oriented? Yes 0 * How many steps to enter\exit or inside your home? 0 0 * PCP Dr. Rafael Barraza in [place] 0 * Pharmacy [facility] 0 * Preadmission Environment Home Alone 0 * ADLs Independent 0 * List name and contact numbers for known caregivers / representatives who currently or will assist patient after discharge: Brother - Gerson Mcwilliams [phone] Friend - Lara Jean-Baptiste [phone] Friend - Franny Salvatore 0 * Additional services required to return to the preadmission environment? No 0 * Can the patient safely return to the preadmission environment? Yes 0 * Has this patient been hospitalized within the prior 30 days at any hospital? 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 Patient states she lives alone & is independent with all ADL's. 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 She has not used any DME or had home health services in the past. She states her friends, Lara Jean-Baptiste and Franny Salvatore will be helping her at home after discharge. No needs identified or verbalized at this time. CM will follow & assist as needed. Industrial Painter: Marga To
--- NOTE | 2017-09-22 10:56 | NUR ---
Respiratory therapist in room for breathing treatment administration
--- NOTE | 2017-09-22 11:07 | NUR ---
Balloon pump setting changed to 1:3 per verbal order
--- NOTE | 2017-09-22 11:09 | NUR ---
Pt working with incentive spirometer at this time. 1500 consistently
--- NOTE | 2017-09-22 12:16 | NUR ---
Family at bedside. Clear liquid tray provided. Pt tolerating well so far.
--- NOTE | 2017-09-22 13:29 | NUR ---
Pt temperature increasing. Asked pt if she was warm. Responded that she was. Gave cool, wet washcloth for forehead, removed additional covering and placed engineering order to cool room.
--- NOTE | 2017-09-22 15:10 | NUR ---
Pt resting quietly at this time. Has been repositioned for comfort to her left side. Her milk bottler from [employer] came by and prayed with her.
--- NOTE | 2017-09-22 16:34 | NUR ---
Dr Aguilar has been in to see patient. Versed given for pre-medication. Chest tubes pulled. Balloon pump discontinued and Femstop placed over right groin site. Current inflation of 152 mmHg. To deflate by 10mmHg Q20min. Substernal dressing per order. To keep RIJ [place] and RRadial ART line until tomorrow. Primacor to continue until current bag runs out (around 4am). Dopamine will begin to be weaned tomorrow per Dr Aguilar request.
--- NOTE | 2017-09-22 17:16 | NUR ---
Dr Aguilar by to check in on patient. Family at bedside. Update provided. Femstop site WNL at 115mmHg
--- NOTE | 2017-09-22 18:02 | NUR ---
Family no longer at bedside. Central line dressing change to RIJ and RSUB per protocol. Dressing dated and initialed. Continue to release pressure to Femstop. No bleeding noted. Patient used more of her Morphine post FemStop placement than has all day due to discomfort. She is resting quietly at this time.
--- NOTE | 2017-09-22 18:35 | NUR ---
Prado catheter care completed. Pt wiped down with clorhexadine wipes to removed remaining blood from Femstop application. All new linens and gown provided. Pt repositioned for comfort.
--- NOTE | 2017-09-22 18:53 | NUR ---
Pt sleeping comfortably. Lightly snoring. All pressure has been let out of Femstop. Device remains in place at this time until patient awakens and then dressing will be placed.
--- NOTE | 2017-09-22 19:20 | NUR ---
REC'D PT RESTING IN BED ON O2 @ 2 LITERS, AWAKENS TO VERBAL STIMULI, ORIENTED X 4, RIJ SWAN CRISTINO DRSG CDI PLASMALYTE @ 15CC/HR, RDLSCL DRSG CDI WITH BURETROL @ 15CC/HR AND MORPHINE CRA OFFICER 1MG Q10MIN WITH 24MG Q4HR LOCKOUT, CORDARONE @ 5CC/HR, DOPAMINE @ 14.1CC/HR OR 5MCG/KG/MIN, AND PRIMACOR @ 0.3MCG/KG/MIN OR 6.8CC/HR, MIDSTERNAL DRSG CDI, RIGHT RADIAL KERI FLEXION BOARD IN USE, LEVELED AND ZEROED WITH RETURN OF APPROPRIATE WAVEFORM, SUBSTERNAL DRSG CDI TO PREVIOUS CT INSERTION SITES, EXTERNAL P/M WIRES TAPED SECURELY TO UPPER ABD, EXTERNAL P/M VVI 60 VMA 10, CM-SR @ 80, RIGHT GROIN WITH FEMSTOP IN PLACE BUT COMPLETELY DEFLATED, PREVIOUS IABP SITE CDI WITHOUT BLEEDING OR HEMATOMA, CRITICORE CLEMENTE PATENT DRAINING CLEAR YELLOW URINE, PT DENIES PAIN, JASMEET AND SCD TO LEFT LEG, JASMEET APPLIED TO RIGHT AND SCD REAPPLIED, SR UP X 2, 1:[address]
--- NOTE | 2017-09-22 19:26 | NUR ---
ORAL CARE WITH PERIDEX PROVIDED
--- NOTE | 2017-09-22 20:30 | NUR ---
FEM STOP REMOVED, SITE HAS NO BLEEDING OR HEMATOMA, 2X2 AND TEGADERM APPLIED TO RIGHT GROIN, PT REPOSITIONED FOR COMFORT, DENIES PAIN OR NEEDS, ICE WATER PROVIDED ON REQUEST, BP STABLE.
--- NOTE | 2017-09-22 21:30 | NUR ---
EVENING MEDS GIVEN, PT DENIES NAUSEA OR PAIN, PT PULLING 1500 ON IS, VSS WILL CONT TO MONITOR FOR CHANGES.
--- NOTE | 2017-09-22 23:00 | NUR ---
PT REPOSITIONED FOR COMFORT, PT PULLING 1500 ON IS, DENIES PAIN OR OTHER NEEDS, REASSESSMENT COMPLETED, RIGHT GROIN DRSG REMAINS CDI, NO BLEEDING OR HEMATOMA, SR UP X 2, VISIBLE TO NURSE IN DOORWAY.
[2017-09-23] VITALS (75 sets, daily range): BP systolic 97–125; BP diastolic 35–85
--- NOTE | 2017-09-23 01:00 | NUR ---
PT RESTING EYES CLOSED, RESP EVEN AND UNLABORED, VSS, WILL CONT TO MONITOR FOR CHANGES
--- NOTE | 2017-09-23 03:30 | NUR ---
REASSESSEMENT COMPLETED, NO CHANGES FROM PREVIOUS ASSESSMENT, RT AT BS FOR BREATHING TX, CLEMENTE CARE PER PROTOCOL PROVIDED.
--- NOTE | 2017-09-23 04:30 | NUR ---
RADIOLOGY @ BS, PT REPOSITIONED UP IN BED, TOLERATED WELL, DENIES PAIN OR OTHER NEEDS.
--- NOTE | 2017-09-23 06:00 | NUR ---
AM MEDS GIVEN, PT REPOSITIONED ONTO BACK, HOB ELEVATED, ICE WATER PROVIDED, BP STABLE, PT DENIES NEEDS, NO VISITORS IN THIS AM.
[2017-09-23 06:27] LABS: HEMATOCRIT 27.8 % (36.0-48.0); HEMOGLOBIN 9.3 g/dL (12-16); MCH 29.9 pg (26.0-34.0); MCHC 33.5 g/dL (31.0-37.0); MCV 89.4 fL (80.0-100.0); MEAN PLATELET VOLUME 10.8 fL (7.4-10.4); RBC 3.11 10x6/uL (4.00-5.40); RDW 15.1 % (11.5-14.5)
[2017-09-23 07:01] LABS: ALBUMIN 3.7 g/dL (3.4-5.0); ALKALINE PHOSPHATASE 35 U/L (46-116); ALT (SGPT) 20 U/L (10-68); BILIRUBIN - TOTAL 0.77 mg/dL (0.2-1.3); CALC OSMOLALITY 276 mosm/kg (275-300); CALCIUM 8.6 mg/dL (8.5-10.1); CARBON DIOXIDE 30.2 mmol/L (21.0-32.0); CHLORIDE - SERUM 100 mmol/L (98-107); CREATININE - SERUM 0.5 mg/dL (0.6-1.3); GLUCOSE 120 mg/dL (74-106); PROTEIN - SERUM 6.4 g/dL (6.4-8.2); SODIUM 138 mmol/L (136-145); UREA NITROGEN 12 mg/dL (7-18); eGFR NON AFRICAN AMERICAN > 90 mL/min (90-120)
[2017-09-23 07:03] LABS: POTASSIUM - SERUM 3.2 mmol/L (3.5-5.1)
--- NOTE | 2017-09-23 07:26 | NUR ---
Report received. Assumed care of patient. Pt awake, sitting up in bed at this time with breakfast tray. Shift assessment completed. Primacor infusion is off. street roller engineer nurse hung Nitro, but was not started due to pt BP coming back down on its own. Currently infusing Plasmalyte at 15ml/hr in RSUB central line along with Amiodarone at 5ml/hr and Dopamine at 14.1ml/hr, and Morphine PRODUCTION SUPPORT SUPERVISOR. Dressing intact and dated 09/22. ISSA roberson has buretrol with plasmalyte and replacement dose of potassium (10meQ,(25ml)) infusing from 40meQ bag to RSUB central line. Dressing intact and dated 09/22. [place] line positioned at approximately 53cm. Syringe in lock position. Temp pacer setting of VII 60, VMA 10. Dressing intact and dated 09/22. Pt has right radial ART line. Wrist protector in use. All pressure bags checked for proper inflation level. Lines zeroed. Breath sounds clear with diminished bases. Productive cough noted. S1,S2. Sinus rhythm. Dressing intact at right groin. Pt has TEDs and SCDs in use. Pulses palpable. Criticor oneil catheter in use. Clear pale yellow urine. Temp 37.4. O2 at 2L NC.
--- NOTE | 2017-09-23 09:45 | NUR ---
Have removed RIJ [place] and right radial art line, tips intact. All fluids discontinued with exception of Dopamine and Amiodarone. Placed on BP cuff. VSS. Prado catheter removed, tip intact.
--- NOTE | 2017-09-23 09:56 | NUR ---
Nutrition Follow Up: Nursing in with pt at the time of RD visit. Interview deferred. Per chart pt is eating 42% meal avg on an AHA diet. No BM since admit. Wt stable. Labs reviewed. Meds noted including Lasix. Rec continue current diet as tolerated. Will continue to honor food preferences. RD following.
--- NOTE | 2017-09-23 10:55 | NUR ---
Pt assisted up to toilet. Urinated. Now in chair at bedside.
--- NOTE | 2017-09-23 11:53 | NUR ---
Pt up in chair at bedside. Lunch tray provided. Denies any other needs. Call light in reach.
--- NOTE | 2017-09-23 13:29 | NUR ---
Visitors at bedside. IV lines were due to be changed today. New lines hung with new bags of ordered drips.
--- NOTE | 2017-09-23 16:44 | NUR ---
Dinner tray provided. Denies any other needs. In chair at bedside at this time. call light in reach.
--- NOTE | 2017-09-23 18:27 | NUR ---
Pt was minimally assisted up to toilet. Oral care and hygiene attended to
--- NOTE | 2017-09-23 19:15 | NUR ---
Received patient resting in bed iwth eyes closed, assessment completed per flowsheet. Patient AO x4, calm and cooperative. Eyes PERRLA @ 4mm with brisk response, sclera is white/clear. S1/S2 noted NSR on telemetry with HR 90, rythmic and regular. TPM settings VVI R-60 VmA-10 S-2, wires secured/intact with dressing CDI. Breathing is even and unlabored on room air with O2 sat 92%, lung sounds clear bilateral upper and mid with diminished lower. Midsternal incision dressing CDI, no swelling/bleeding noted. Substernal dressing CDI, no swelling/bleeding noted. Abdomen is slightly distended and soft with bowel sounds active x4, non-tender. Patient ambulates to bathroom w/o assistance, no difficulties reported. Full ROM all extremities with all pulses palpable, cap refill < 3 sec with skin warm/dry. Patient reports intermittent chest pain 1/10 dull ache, denies needing medication at this time. No further needs, repostioned for comfort. All VSS and will continue to monitor.
--- NOTE | 2017-09-23 21:00 | NUR ---
All HS meds given without difficulty, patient resting in bed with eyes closed. No visitors at this time, patient repositioned for comfort. Midsternal dressing CDI with no bleeding/drainage noted. Substernal dressing CDI, TPM wires secured/intact. Repostioned for comfort, all VSS and will continue to monitor.
--- NOTE | 2017-09-23 23:10 | NUR ---
Reassessment completed per flowsheet, patient resting in bed with eyes closed. S1/S2 noted NSR on telemetry with HR 89, rhythmic and regular. TPM in use with wires intact/secured, settings unchanged. Breathing is even and unlabored on room air with O2 sat 93%, lung sounds clear bilateral upper and mid with diminished lower. Full ROM all extremities with all pulses palpable, cap refill < 3 sec with skin warm/dry to touch. Midsternal dressing CDI with no bleeding/drainage, Substernal dressing CDI with no bleeding/drainage noted. Patient repositioned for comfort, patient denies pain or other needs at this time. All VSS and will continue to monitor.
[2017-09-24] VITALS (65 sets, daily range): BP systolic 56–127; BP diastolic 35–65
--- NOTE | 2017-09-24 01:00 | NUR ---
Patient resting in bed with eyes closed, breathing is shallow and unlabored on room air with O2 sat 92%. TPM V-sensing with settings unchanged, wires secured/intact. Patient repositioned for comfort, no further needs at this time. All VSS and will continue to monitor.
--- NOTE | 2017-09-24 02:00 | NUR ---
Patient requested assistance to bathroom, 1000ml concentrated yellow urine noted. Returned to bed and repositioned for comfort, denies pain or other needs at this time. All VSS and will continue to monitor.
--- NOTE | 2017-09-24 03:10 | NUR ---
Reassessment completed per flowsheet, patient resting in bed with eyes closed. S1/S2 noted NSR on telemetry with HR 91, rhythmic and regular. Breathing is shallow and unlabored on room air with O2 sat 92%, lung sounds clear bilateral upper and mid with diminished lower. Midsternal dressing CDI, no bleeding/drainage noted. Substernal dressing CDI with wires intact/secured, no bleeding/drainage noted. R groin dressing CDI, no bleeding/swelling and non-tender to palpation. All pulses palpable with cap refill < 3 sec, skin warm/dry to touch. Patient repostioned for comfort, denies pain or other needs at this time. All VSS and will continue to monitor.
--- NOTE | 2017-09-24 05:00 | NUR ---
Patient laying in bed with eyes open, breathing is slightly shallow on room air with O2 sat 93%. Midline dressing CDI with no bleeding/drainage noted. Substernal dressing CDI with TPM wires secured/intact, no bleeding/drainage noted. R groin dressing CDI with no bleeding/drainage noted, area non-tender to palpation. Patient repositioned in bed, no further needs at this time. All VSS and will continue to monitor.
--- NOTE | 2017-09-24 06:15 | NUR ---
AM labs collected without difficulty, patient states no further needs at this time. All VSS and will continue to monitor.
[2017-09-24 06:26] LABS: HEMATOCRIT 28.3 % (36.0-48.0); HEMOGLOBIN 9.3 g/dL (12-16); MCH 29.9 pg (26.0-34.0); MCHC 32.9 g/dL (31.0-37.0); MEAN PLATELET VOLUME 10.2 fL (7.4-10.4); RBC 3.11 10x6/uL (4.00-5.40); RDW 15.4 % (11.5-14.5); WBC 7.8 10x3/uL (4.8-10.8)
[2017-09-24 06:54] LABS: ALBUMIN 3.5 g/dL (3.4-5.0); ALKALINE PHOSPHATASE 35 U/L (46-116); ALT (SGPT) 20 U/L (10-68); BILIRUBIN - TOTAL 0.61 mg/dL (0.2-1.3); CALC OSMOLALITY 280 mosm/kg (275-300); CALCIUM 8.6 mg/dL (8.5-10.1); CHLORIDE - SERUM 104 mmol/L (98-107); CREATININE - SERUM 0.5 mg/dL (0.6-1.3); GLUCOSE 109 mg/dL (74-106); PROTEIN - SERUM 6.3 g/dL (6.4-8.2); SODIUM 140 mmol/L (136-145); UREA NITROGEN 14 mg/dL (7-18); eGFR NON AFRICAN AMERICAN > 90 mL/min (90-120)
[2017-09-24 06:55] LABS: POTASSIUM - SERUM 3.8 mmol/L (3.5-5.1)
--- NOTE | 2017-09-24 08:15 | NUR ---
Shift report has been received. Assessment complete. Pt assisted up to toilet. Now in chair at bedside. Breakfast tray has been provided. Denies any other needs. New orders received.
--- NOTE | 2017-09-24 08:19 | NUR ---
Pt off unit for xray.
--- NOTE | 2017-09-24 09:22 | NUR ---
Patient Name: URIAH GUEVARA Encounter No: [id number] : 1950 Primary Insurance: [employer] O Anticipated DC Date: 09-27-2017 Planned Disposition: Home DCP follow-up note: Patient and family in agreement with discharge plan. No changes to plan. Case management will follow and assist as needed. Marga To
--- NOTE | 2017-09-24 09:34 | NUR ---
Verbal order per Evon GERBER with DR Aguilar staff to wean Dopamine over the next 24 hours.
--- NOTE | 2017-09-24 12:35 | NUR ---
I.S. performed. [phone] reached. Pt then assisted up to toilet.
--- NOTE | 2017-09-24 15:00 | NUR ---
incentive spirometry [phone]
--- NOTE | 2017-09-24 16:30 | NUR ---
Substernal dressing changed per protocol. Dated and initialed. Bruising noted, incisions WNL.
--- NOTE | 2017-09-24 17:15 | NUR ---
Pt assisted up to toilet. Now back in chair at bedside. Dinner tray provided. Denies any other needs. call light in reach.
--- NOTE | 2017-09-24 19:13 | NUR ---
D/C'd order for Amiodarone drip. Instructions were to stop after current infusing bag was complete.
--- NOTE | 2017-09-24 19:40 | NUR ---
PT UP IN CHAIR, AOX4. RESPIRATIONS UNLABORED, LUNG SOUNDS CLEAR. S1S2 AUSCULTATED. PERIPHERAL PULSES PRESENT. TPM SECURED, VVI 60. BOWEL SOUNDS ACTIVE IN ALL QUADRANTS. MIDSTERNAL AND SUBSTERNAL DRSGS CDI. VSS, DENIES PAIN AT THIS TIME. COUGH/DB WITH GOOD EFFORT. PULLING UP TO 1750 ON I.S. X10. REQUESTS TO STAY UP IN CHAIR UNTIL AFTER HS MEDS. DENIES FURTHER NEEDS AT THIS TIME. CALL LIGHT WITHIN PT REACH. CPOC.
--- NOTE | 2017-09-24 21:00 | NUR ---
HS MEDS GIVEN, FRESH WATER TO BEDSIDE. BED LINENS CHANGED. UP TO BATHROOM WITH MINIMAL ASSISTANCE, ORAL CARE COMPLETED INDEPENDENTLY. PT TO BED, REPOSITIONED FOR COMFORT. DENIES PAIN, VSS, NO S/S OF DISTRESS AT THIS TIME. CALL LIGHT AND BEDSIDE TABLE WITHIN PT REACH. CPOC.
--- NOTE | 2017-09-24 23:33 | NUR ---
REASSESSMENT COMPLETE, NO NEW CHANGES AT THIS TIME. PT RESTING QUIETLY WITH VSS, NO C/O PAIN. NO S/S OF DISTRESS AT THIS TIME. PT REPOSITIONED FOR COMFORT WITH MINIMAL ASSISTANCE. COUGH/DB WITH GOOD EFFORT. DENIES NEEDS. CALL LIGHT WITHIN PT REACH. CPOC.
[2017-09-25] VITALS (42 sets, daily range): BP systolic 93–123; BP diastolic 32–65
--- NOTE | 2017-09-25 04:20 | NUR ---
PT UP TO BATHROOM WITH MINIMAL ASSISTANCE, VOID AND BM.
--- NOTE | 2017-09-25 04:42 | NUR ---
COMPLETED PA AND LAT XRAY, TOLERATED WELL. VSS, NO C/O PAIN OR S/S OF DISTRESS. BED LINENS CHANGED. COUGH/DB WITH GOOD EFFORT. COMPLETED I.S. PULLING UP TO 1750 X10. DENIES NEEDS AT THIS TIME. RESTING COMFORTABLY. CALL LIGHT WITHIN PT REACH. CPOC.
[2017-09-25 06:16] LABS: HEMATOCRIT 27.4 % (36.0-48.0); MCH 29.8 pg (26.0-34.0); MCHC 32.8 g/dL (31.0-37.0); MCV 90.7 fL (80.0-100.0); MEAN PLATELET VOLUME 9.7 fL (7.4-10.4); RBC 3.02 10x6/uL (4.00-5.40); RDW 15.8 % (11.5-14.5); WBC 6.5 10x3/uL (4.8-10.8)
[2017-09-25 06:47] LABS: ALBUMIN 3.3 g/dL (3.4-5.0); ALKALINE PHOSPHATASE 38 U/L (46-116); ALT (SGPT) 22 U/L (10-68); BILIRUBIN - TOTAL 0.55 mg/dL (0.2-1.3); CALC OSMOLALITY 282 mosm/kg (275-300); CALCIUM 8.8 mg/dL (8.5-10.1); CARBON DIOXIDE 26.7 mmol/L (21.0-32.0); CHLORIDE - SERUM 105 mmol/L (98-107); CREATININE - SERUM 0.6 mg/dL (0.6-1.3); GLUCOSE 95 mg/dL (74-106); POTASSIUM - SERUM 4.3 mmol/L (3.5-5.1); PROTEIN - SERUM 6.2 g/dL (6.4-8.2); SODIUM 141 mmol/L (136-145); UREA NITROGEN 17 mg/dL (7-18); eGFR NON AFRICAN AMERICAN > 90 mL/min (90-120)
--- NOTE | 2017-09-25 07:50 | NUR ---
REC'D CARE OF PT. A&O X3. UP OOB TO BATHROOM.
--- NOTE | 2017-09-25 08:55 | NUR ---
CONSUMED 100% OF BREAKFAST
--- NOTE | 2017-09-25 09:47 | NUR ---
SITTING UP IN CHAIR. DENIES NEEDS.
--- NOTE | 2017-09-25 10:10 | NUR ---
AMBULATED 700 FEET AND BACK TO CHAIR WITH PAGE CRYSTAL PT
--- NOTE | 2017-09-25 11:06 | NUR ---
PEYMAN TEJADA DC'D
--- NOTE | 2017-09-25 11:12 | NUR ---
PULLS 1500 ON IS X10
--- NOTE | 2017-09-25 12:28 | NUR ---
LUNCH TRAY SERVED
--- NOTE | 2017-09-25 12:42 | NUR ---
USES IS INDEPENDTLY. PULLS 1500.
--- NOTE | 2017-09-25 13:40 | NUR ---
REMAINS UP TO CHAIR. DENIES NEEDS. RR EVEN AND UNLABORED. RIGHT SCDL=SL. CLWR. CPOC.
--- NOTE | 2017-09-25 15:00 | NUR ---
REMAINS UP TO CHAIR. DENIES NEEDS.VSS. VVI 60/10=TP.
--- NOTE | 2017-09-25 17:00 | NUR ---
IN CHAIR. NO DISTRESS.
--- NOTE | 2017-09-25 19:30 | NUR ---
PT AOX4, DENIES PAIN. UP IN CHAIR WITH NO S/S OF DISTRESS. LUNG SOUNDS CLEAR, S1S2 HEARD, PPP. BOWEL SOUNDS ACTIVE IN ALL QUADRANTS. COMPLETED I.S. PULLING 1750 X10. DENIES NEEDS. CALL LIGHT WITHIN PT REACH. CPOC.
--- NOTE | 2017-09-25 21:15 | NUR ---
HS MEDS GIVEN. FRESH WATER TO BEDSIDE. PT BACK TO BED, REPOSITIONS SELF INDEPENDENTLY. VSS, NO C/O PAIN OR S/S OF DISTRESS.
--- NOTE | 2017-09-25 23:30 | NUR ---
REASSESSMENT COMPLETE, NO NEW CHANGES AT THIS TIME. VSS, NO C/O PAIN. COMPELTED I.S. PULLING UP TO 1750. DENIES NEEDS. CALL LIGHT WITHIN PT REACH. CPOC.
[2017-09-26] VITALS (23 sets, daily range): BP systolic 92–126; BP diastolic 41–59
--- NOTE | 2017-09-26 03:30 | NUR ---
REASSESSMENT COMPLETE, NO NEW CHANGES. NO C/O PAIN. VSS.
--- NOTE | 2017-09-26 04:30 | NUR ---
PA AND LAT XRAY COMPLETED, TOLERATED WELL. VSS, NO C/O PAIN. FRESH WATER TO BEDSIDE. I.S. COMPLETED PULLING UP TO 1750 X10. DENIES NEEDS. CPOC.
[2017-09-26 06:22] LABS: HEMATOCRIT 29.2 % (36.0-48.0); HEMOGLOBIN 9.6 g/dL (12-16); MCH 29.8 pg (26.0-34.0); MCHC 32.9 g/dL (31.0-37.0); MCV 90.7 fL (80.0-100.0); MEAN PLATELET VOLUME 9.8 fL (7.4-10.4); RBC 3.22 10x6/uL (4.00-5.40); RDW 15.8 % (11.5-14.5); WBC 7.3 10x3/uL (4.8-10.8)
[2017-09-26 06:49] LABS: ALBUMIN 3.5 g/dL (3.4-5.0); ALKALINE PHOSPHATASE 41 U/L (46-116); ALT (SGPT) 21 U/L (10-68); CALC OSMOLALITY 276 mosm/kg (275-300); CALCIUM 9.3 mg/dL (8.5-10.1); CARBON DIOXIDE 24.2 mmol/L (21.0-32.0); CHLORIDE - SERUM 104 mmol/L (98-107); GLUCOSE 98 mg/dL (74-106); POTASSIUM - SERUM 4.2 mmol/L (3.5-5.1); PROTEIN - SERUM 6.5 g/dL (6.4-8.2); SODIUM 138 mmol/L (136-145); UREA NITROGEN 14 mg/dL (7-18); eGFR NON AFRICAN AMERICAN 76 mL/min (90-120)
[2017-09-26 06:54] LABS: CREATININE - SERUM 0.8 mg/dL (0.6-1.3)
--- NOTE | 2017-09-26 12:06 | OP ---
PATIENT NAME: URIAH GUEVARA MEDICAL RECORD: [id number] :52 LOCATION:[facility] D.CV05 ADMISSION DATE:09/20/17 SURGEON: CHUCK AGUILAR MD DATE OF OPERATION: 09/20/2017 SURGEON: Chuck Aguilar MD ANESTHESIA: General endotracheal, Dr. Alas. OPERATION PERFORMED: 1. Mitral valve repair. 2. Neochordae A2 anterior leaflet. 3. Sliding valvuloplasty and resection of P2. 4. Annuloplasty mitral annulus utilizing a 30-mm saddle ring. 5. Intraaortic balloon pump for diminished left ventricular function and hemodynamic instability. PREOPERATIVE DIAGNOSIS: Mitral regurgitation. POSTOPERATIVE DIAGNOSES: Mitral regurgitation secondary to prolapse of A2 leaflet anteriorly and flail P2 leaflet posteriorly, diminished left ventricular function. INDICATION FOR OPERATION: Mitral regurgitation. FINDINGS AT OPERATION: The A2 leaflet was prolapsing secondary to elongated chordae. The posterior leaflet P2 was ruptured with regurgitation. The annulus was enlarged and anterior leaflet sized to a 30 saddle ring. The intraaortic balloon pump was used for hemodynamic instability and diminished left ventricular function. The saddle ring was [employer], serial number [id number]. ESTIMATED BLOOD LOSS: Cell Saver was used. DESCRIPTION OF PROCEDURE: After informed consent, adequate preoperative medication and evaluation, the patient was brought to the operating room, placed on the table in the supine position. After induction of general endotracheal anesthesia and application of appropriate monitoring devices, the chest, neck, abdomen, and both legs were prepped and draped in a sterile field, utilizing Betadine scrub, alcohol, and Betadine solution. A Betadine-impregnated drape was also used. A standard median sternotomy incision was used and dissection carried down the fascia. Hemostasis maintained with electrocautery. Sternum was divided. Innominate vein was identified and protected. The pericardium was opened. A pericardial well was formed by utilizing pericardial traction sutures. The patient was given a calculated dose of heparin, cannulated in a standard fashion utilizing 1 aortic, 2 atrial cannulas with caval tapes. A retrograde coronary catheter was also placed. The patient was placed on cardiopulmonary bypass, she was cooled to 32 degrees centigrade. The left atrium was opened and a crossclamp was placed just proximal to the aortic cannula and the patient was given cardioplegic solution through the aortic root. The patient was given a cold induction and cold maintenance. The patient was given cold intermittent cardioplegic solution throughout the procedure through the root retrogradely or a combination of both. The Waterston's groove was dissected and the atriotomy extended. The valve was examined. The P2 leaflet OPERATIVE REPORT [id number] URIAH GUEVARA was prolapsing due to elongated chordae tendineae. The posterior P2 leaflet was flailed with marked regurgitation. The anterior leaflet primary chordae on either side of the A2 segment were measured and appropriate chordae tendineae sutures selected. The base of the sutures were placed through the head of the anterior papillary muscle and secured. The 3 individual loops were then placed through the A2 segment and secured. This resolved the P2 leaflet prolapse. Attention was then turned posteriorly. The posterior leaflet was quite large. The P2 leaflet was flail. The P2 leaflet was resected and a sliding valvuloplasty performed, reapproximating the valve leaflets with a 5-0 Ethibond suture. Circumferential annuloplasty sutures were placed and the anterior trigone distance was measured and she measured to a 30 [employer]. The sutures were placed through the sewing ring of the valve. The valve lowered into position and secured. The valve was tested and there was no leak. A vent was placed across the valve and the atriotomy closed in 2 layers utilizing running 3-0 Prolene suture. The patient was given warm cardioplegic reperfusion and controlled reperfusion. The patient was allowed to beat and rest. The crossclamp was removed and the patient allowed to continue resting in a vented state. The vent was removed and the left atrium secured. The patient was then weaned off cardiopulmonary bypass. The valve was examined and there was no regurgitation. The ventricular function was poor, preoperatively was approximately 40, however, post-procedure was 30 and did not improve with rest. Therefore, an intraaortic balloon pump was placed through the right common femoral artery with marked improvement in the ventricular function; however, it is still impaired. After being stable off bypass, the patient was given a calculated dose of protamine to reverse the heparin. Hemostasis was achieved. #40 right angle and #36 chest tubes were brought in through the epigastric area and placed in mediastinum. The chest was again irrigated. Instrument count and sponge count were correct times 2. Chest was closed in layers utilizing #7 wire on the sternum, #2 Vicryl on linea alba and pectoralis fascia. Subcutaneous tissue approximated with 3-0 Vicryl and the skin approximated with 3-0 subcuticular Vicryl. Sterile dressings were applied. The patient tolerated the procedure well and transferred to cardiovascular ICU in satisfactory condition. TRANSINT:[id number] Voice Confirmation ID: [id number] DOCUMENT ID: [id number] CHUCK AGULIAR MD at 1206 CC: [id number] DICTATION DATE: 09/20/17 1424 WEALTH MANAGEMENT ADVISOR: 09/20/17 1522 ADM IN [place] [id number] [place] [id number]
--- NOTE | 2017-09-26 19:30 | NUR ---
REPORT RECIEVED. ASSESSMENT COMPLETED. SEE FLOW SHEET FOR FURTHER DETAILS. PT RESTING IN CHAIR WITH NO SIGNS OF DISSTRESS. CALL LIGHT IN REACH, WILL CONTINUE TO MONITOR PT.
--- NOTE | 2017-09-26 21:00 | NUR ---
NO VISITORS AT THIS TIME. HELPED PT TO THE RESTROOM. 600 ML OF CLEAR YELLOW URINE. HELPED GET COMFORTABLE IN BED AND HOOKED TO THE MONITOR. WILL CONTINUE TO MONITOR PT.
--- NOTE | 2017-09-26 23:00 | NUR ---
REASSESSMENT COMPLETED. SEE FLOW SHEET FOR DETAILS. NO ACUTE CHANGES AT THIS TIME. NO SIGN OF DISTRESS. BED IN LOW POSITION, CALL LIGHT IN REACH. WILL CONTINUE TO MONITOR.
[2017-09-27] VITALS (11 sets, daily range): BP systolic 101–124; BP diastolic 40–60
--- NOTE | 2017-09-27 01:02 | NUR ---
PT SLEEPING WITH EYES CLOSED SHOWS NO SIGNS OF DISTRESS. WILL CONTINUE TO MONITOR.
--- NOTE | 2017-09-27 03:00 | NUR ---
REASSESSMENT COMPLETED. NO CHANGES AT THIS TIME. HELPED TO THE RESTROOM AND BACK TO BED. POSITIONED FOR COMFORT WILL CONTINUE TO MONITOR.
--- NOTE | 2017-09-27 05:00 | NUR ---
HELPED PT TO THE BATHROOM AND BACK TO BED. HAD A BM. WILL CONTINUE TO MONITOR PT.
[2017-09-27 06:17] LABS: HEMATOCRIT 29.7 % (36.0-48.0); HEMOGLOBIN 9.6 g/dL (12-16); MCH 29.4 pg (26.0-34.0); MCHC 32.3 g/dL (31.0-37.0); MCV 90.8 fL (80.0-100.0); MEAN PLATELET VOLUME 9.8 fL (7.4-10.4); RBC 3.27 10x6/uL (4.00-5.40); RDW 15.7 % (11.5-14.5); WBC 7.6 10x3/uL (4.8-10.8)
[2017-09-27 06:31] LABS: ALBUMIN 3.5 g/dL (3.4-5.0); ALKALINE PHOSPHATASE 45 U/L (46-116); ALT (SGPT) 20 U/L (10-68); BILIRUBIN - TOTAL 0.57 mg/dL (0.2-1.3); CALC OSMOLALITY 278 mosm/kg (275-300); CARBON DIOXIDE 27.5 mmol/L (21.0-32.0); CHLORIDE - SERUM 104 mmol/L (98-107); CREATININE - SERUM 0.7 mg/dL (0.6-1.3); GLUCOSE 91 mg/dL (74-106); POTASSIUM - SERUM 4.3 mmol/L (3.5-5.1); PROTEIN - SERUM 6.7 g/dL (6.4-8.2); SODIUM 140 mmol/L (136-145); UREA NITROGEN 13 mg/dL (7-18); eGFR NON AFRICAN AMERICAN 89 mL/min (90-120)
--- NOTE | 2017-09-27 07:15 | NUR ---
REPORT RECIEVED FROM KAIAKO KURA [place]AUPAPA MAORI NURSE. PT RESTING IN BED QUIETLY. ASSESSMENT COMPLETE PER FLOWSHEET. CALL LIGHT IN REACH. VSS. WILL CONT TO ASSESS FOR CHANGES.
[2017-09-27] MEDS ORDERED: HEMOCYTE PLUS C1 CAP PO (08:05)
[2017-09-27] MEDS ORDERED: NORVASC10 MG PO (08:06)
[2017-09-27] MEDS ORDERED: CORDARONE200 MG PO (08:06)
[2017-09-27] MEDS ORDERED: LASIX20 MG PO (08:08)
[2017-09-27] MEDS ORDERED: K-DUR20 MEQ PO (08:09)
[2017-09-27] MEDS ORDERED: HYDROCODONE-APA1 TAB PO (08:09)
--- NOTE | 2017-09-27 09:55 | NUR ---
Patient Name: URIAH GUEVARA Encounter No: [id number] : 1950 Primary Insurance: [employer] O Anticipated DC Date: 09-27-2017 Planned Disposition: Home DCP follow-up note: Anticipate dc this afternoon. No DC needs identified or verbalized. Patient in agreement with discharge plan. No changes to plan. Case management will follow and assist as needed. Marga To
--- NOTE | 2017-09-27 11:30 | NUR ---
D/C INSTRUCTIONS REVIEWED WITH PT. QUESTIONS ANSWERED. TPM WIRES AND CENTRAL LINE REMOVED PER BUZZ MARQUES. DRESSINGS C/D/I.
--- NOTE | 2017-09-27 12:00 | NUR ---
TRANSPORTED OUT VIA W/C TO PERSONAL VEHICLE.
--- NOTE | 2017-10-01 14:14 | TEE ---
PATIENT:URIAH GUEVARA ANN MEDICAL RECORD: [id number] LOCATION:[place] [address] AGE OF PATIENT: 66 ADMISSION DATE: 09/20/17 SEX: F REFERRING PHYSICIAN: INTERPRETING PHYSICIAN: PANCHO CARNEY MD TRANSESOPHAGEAL ECHOCARDIOGRAM JOE CHARGE Y INDICATIONS: MVR PREMEDICATIONS: PATIENT'S RESPONSE PROCEDURE DOPPLER MEASUREMENTS: LVIT LA PA RA LVOT RVOT Asc. 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 [employer] Authoring Specialist: 1 GEOVANY MCKENZIE COMMENTS: DATE OF SERVICE: 09/22/2017 PROCEDURE: Transesophageal echo evaluation of valvular structures during open heart surgery for mitral valve replacement. FINDINGS: 1. Left ventricular chamber size is within normal limits. Left ventricular systolic function is normal. Overall ejection fraction estimated at 55%. 2. Left atrium, right atrium, and right ventricular chamber sizes are within TRANSESOPHAGEAL ECHOCARDIOGRAM REPORT [id number] URIAH GUEVARA A normal limit. 3. Valvular structures: The mitral valve demonstrates redundancy. No juan josé prolapse. Doppler interrogation reveals severe mitral regurgitation. This is not a new finding. The patient is scheduled for mitral valve replacement. Otherwise, Doppler interrogation only reveals trace aortic insufficiency. 4. No evidence of pericardial effusion or left ventricular thrombus. TRANSINT:[id number] Voice Confirmation ID: [id number] DOCUMENT ID: [id number] at 1414 CC: [id number] DICTATION DATE: 09/22/17 1042 MANAGER TECHNICAL SERVICES: 09/22/17 2258 DIS IN 09/27/[address] [id number]
== END 2017-09-27 12:00 | disposition home or self-care (01) | DRG 220 ==
LOC: D.SDCHOLD 06:27 → D.CVICU 06:27 → D.SDCHOLD 07:30 → D.CVICU 10:41
PROVIDERS: ADMIT Internal Medicine Cardiovascular Disease
PROC: 5A02210 Assistance with Cardiac Output using Balloon Pump, Continuous (ICD-10-PCS; 2017-09-20)
PROC: 5A1221Z Performance of Cardiac Output, Continuous (ICD-10-PCS; 2017-09-20)
PROC: 02UG0JZ Supplement Mitral Valve with Synthetic Substitute, Open Approach (ICD-10-PCS; principal; 2017-09-20 07:30)
PROC: 02BG0ZZ Excision of Mitral Valve, Open Approach (ICD-10-PCS; 2017-09-20 07:30)
DX: I34.0 Nonrheumatic mitral (valve) insufficiency (principal); I42.9 Cardiomyopathy, unspecified; I34.1 Nonrheumatic mitral (valve) prolapse; E03.9 Hypothyroidism, unspecified

== ENCOUNTER → 2017-10-15 12:57 | Outpatient (CLI) | payer BC, MEDICARE ==
[2017-09-21 09:40] VITALS: BMI 27.6
[~2017-10-15 12:57] MED LIST changes: +CORDARONE200 MG PO; +HEMOCYTE PLUS C1 CAP PO; +HYDROCODONE-APA1 TAB PO; +K-DUR20 MEQ PO; +LASIX20 MG PO; +NORVASC10 MG PO
[2017-10-15 13:56] LABS: HEMATOCRIT 31.8 % (36.0-48.0); HEMOGLOBIN 10.4 g/dL (12-16); MCH 29.2 pg (26.0-34.0); MCHC 32.7 g/dL (31.0-37.0); MCV 89.3 fL (80.0-100.0); RBC 3.56 10x6/uL (4.00-5.40); RDW 14.8 % (11.5-14.5); WBC 7.8 10x3/uL (4.8-10.8)
[2017-10-15 14:09] LABS: BILIRUBIN - TOTAL 0.41 mg/dL (0.2-1.3); CALCIUM 9.1 mg/dL (8.5-10.1); CARBON DIOXIDE 28.6 mmol/L (21.0-32.0); CREATININE - SERUM 0.9 mg/dL (0.6-1.3); POTASSIUM - SERUM 3.6 mmol/L (3.5-5.1); PROTEIN - SERUM 7.7 g/dL (6.4-8.2)
== END | disposition home or self-care (01) ==
LOC: D.LAB 08:15 → D.RAD 08:30 → D.LAB 12:57
PROVIDERS: Internal Medicine Cardiovascular Disease
DX: J91.8 Pleural effusion in other conditions classified elsewhere (principal); D64.9 Anemia, unspecified

== ENCOUNTER → 2017-12-02 12:56 | Outpatient (CLI) | payer BC, MEDICARE ==
[2017-09-21 09:40] VITALS: BMI 27.6
== END | disposition home or self-care (01) ==
LOC: D.RAD 08:00
DX: Z98.890 Other specified postprocedural states (principal); J90 Pleural effusion, not elsewhere classified